=== PATIENT | female | born 1930 | race Caucasian/White ===

== ENCOUNTER 2017-07-01 04:14 | Emergency (ER) | payer OTHER, MEDICAID ==
--- NOTE | 2017-07-01 04:45 | EDPHY ---
H & P Stated Complaint: n/v, abdominal cramping Time Seen by Provider: 07/01/17 04:33 HPI/ROS: Chief Complaint: Coffee-ground vomiting abdominal pain HPI: 87-year-old woman presenting from [facility] with nausea vomiting and 2 episodes of large coffee-ground emesis this morning. She has been complaining of upper abdominal and chest pain for the last 2 weeks. She does have a most form indicating comfort measures only however family wanted her transferred here for evaluation of her pain. Denies any fevers or chills. Denies any dark black stools. No shortness of breath. History is limited because the patient does have some dementia. ROS: 10 point Review of Systems is negative except as noted in the HPI. PMH: CVA, hypertension, valvular heart disease, anemia, dysphagia, GERD, colitis, chronic kidney disease, hyperlipidemia, vascular dementia Social History: No smoking, no alcohol, no recreational drug use, resides in [facility] Family History: non-contributory Physical Exam: Gen: Awake, Alert, No Distress HEENT: Nose: no rhinorrhea Eyes: PERRLA, EOMI Mouth: Moist mucosa Neck: Supple, no JVD Chest: nontender, lungs clear to auscultation Heart: S1, S2 normal, no murmur Abd: Soft, mild epigastric tenderness, no guarding Back: no CVA tenderness, no midline tenderness Ext: no edema, non-tender Skin: no rash Neuro: CN II-XII intact, Sensation grossly intact, Strength 5/5 in bilateral upper and lower extremities - Personal History Current Tetanus/Diphtheria Vaccine: Yes Current Tetanus Diphtheria and Acellular Pertussis (TDAP): Yes - Medical/Surgical History Hx Asthma: No Hx Chronic Respiratory Disease: No Hx Diabetes: No Hx Cardiac Disease: Yes Hx Renal Disease: Yes Hx Cirrhosis: No Hx Alcoholism: No Hx HIV/AIDS: No Hx Splenectomy or Spleen Trauma: No - Social History Smoking Status: Never smoked Constitutional: Initial Vital Signs Temperature (C) 36.6 C 07/01/17 04:23 Heart Rate 97 07/01/17 04:23 Respiratory Rate 19 07/01/17 04:23 Blood Pressure 160/94 H 07/01/17 04:23 O2 Sat (%) 94 07/01/17 04:23 O2 Delivery Mode Room Air Allergies/Adverse Reactions: No Allergies Allergy (Verified 07/01/17 04:28) No Known Drug Allergies Allergy (Verified 07/01/17 04:28) Home Medications: Medication Instructions Recorded Bisacodyl [Dulcolax] 5 mg PO 07/01/17 Cetirizine [ZyrTEC 10 mg (*)] 07/01/17 Cholecalciferol 07/01/17 Ear Drops 07/01/17 Metoclopramide HCl 07/01/17 Milk of Magnesia 07/01/17 Multivitamins [Multivitamin (*)] 1 each PO DAILY 07/01/17 Omeprazole 07/01/17 Polyethylene Glycol 3350 [Miralax 07/01/17 17 gm (*)] Senokot 07/01/17 Medical Decision Making Procedures: Procedure: Ultrasound guidance for IV placement. Indication: The nurse requested that I place an intravenous catheter because of technical difficulties with this procedure on this patient. Procedure in details: Using the linear probe covered in a sterile sheath, a short axis of the right basilic vein was obtained. This vein was completely compressible and was identified as separate from the adjacent noncompressible arterial structure. Under real-time guidance, the intravenous needle was observed to tent the vein and then to puncture it. Insertion of intravenous catheter: I prepped the patient's skin with chlorhexidine. I placed an 18 gauge intravenous catheter in the visualized vein. ED Course/Re-evaluation: 87-year-old woman with a history of dementia in a most form indicating comfort measures only coming in with coffee-ground emesis. EMS reported that the next of kin wanted the patient transferred to the hospital for further evaluation. I have discussed with Dr. Bedolla, gastroenterology. He states that he does not feel that endoscopy would be indicated in a patient who is does egg needed comfort measures only. This would be a invasive procedure that would be an escalation of treatment beyond that scope. I have also discussed with . Luann Salas, the patient's niece and medical power of bankruptcy attorney. She indicates that she has an agreement with Amando Shah that the patient is to be comfort measures only and does not want the patient sent to the hospital. She states that she did not have any conversations with the nursing facility this morning. She agrees with the plan to discharge the patient back to the long-term facility. The patient has gotten IV Zofran here. She is resting comfortably. She will be discharged according to the next of kin's wishes. - Data Points Laboratory Results: Laboratory Results 07/01/17 05:50 07/01/17 05:50 07/01/17 07/01/17 05:50 05:50 WBC TNP RBC TNP Hgb TNP Hct TNP MCV TNP MCH TNP MCHC TNP RDW TNP Plt Count TNP MPV TNP Neut % (Auto) TNP Lymph % (Auto) Not Reported [place] % (Auto) TNP Eos % (Auto) TNP Baso % (Auto) TNP Nucleat RBC Rel Count TNP Absolute Neuts (auto) TNP Absolute Lymphs (auto) TNP Absolute Monos (auto) TNP Absolute Eos (auto) TNP Absolute Basos (auto) TNP Absolute Nucleated RBC TNP Immature Gran % TNP Immature Gran # TNP Sodium 144 mEq/L mEq/L (134-144) Potassium 4.5 mEq/L mEq/L (3.5-5.2) Chloride 105 mEq/L mEq/L (97-110) Carbon Dioxide 24 mEq/l mEq/l (22-31) Anion Gap 15 mEq/L mEq/L (8-16) BUN 11 mg/dL mg/dL (7-23) Creatinine 1.1 mg/dL H mg/dL (0.6-1.0) Estimated GFR 47 Glucose 161 mg/dL H mg/dL (70-100) Calcium 10.7 mg/dL H mg/dL (8.5-10.4) Phosphorus 3.5 mg/dL mg/dL (2.5-4.5) Total Bilirubin 0.5 mg/dL mg/dL (0.1-1.4) AST 32 IU/L IU/L (14-46) ALT 41 IU/L IU/L (9-52) Alkaline Phosphatase 163 IU/L H IU/L (38-126) Total Protein 7.5 g/dL g/dL (6.3-8.2) Albumin 4.3 g/dL g/dL (3.5-5.0) Medications Given: Discontinued Medications Acetaminophen (Tylenol) 1,000 mg PO EDNOW ONE Stop: 07/01/17 06:02 Last Admin: 07/01/17 06:03 Dose: 1,000 mg Pantoprazole Sodium (Protonix) 40 mg IVP EDNOW ONE Stop: 07/01/17 04:47 Last Admin: 07/01/17 05:55 Dose: 40 mg Departure - Departure Disposition: Home, Routine, Self-Care Clinical Impression: Vomiting blood Condition: Fair Instructions: Hematemesis (ED) Additional Instructions: Ms Jacob is comfort measures only per her MOST form. Please do not transfer to the hospital unless you are unable to keep her pain controlled in your facility. Referrals: Gertrudis Morrow MD [Primary Care Provider] - As per Instructions
[2017-07-01] MEDS: PANTOPRAZOLE SODIUM 40 MG VIAL IVP ONE (05:55)
[2017-07-01] MEDS: ACETAMINOPHEN 500 MG TAB PO ONE (06:03)
[2017-07-01 06:15] LABS: ALANINE AMINOTRANSFERASE 41 IU/L (9-52); ALBUMIN 4.3 g/dL (3.5-5.0); ALKALINE PHOSPHATASE 163 IU/L (38-126); ANION GAP 15 mEq/L (8-16); ASPARTATE AMINOTRANSFERASE 32 IU/L (14-46); BILIRUBIN,TOTAL 0.5 mg/dL (0.1-1.4); CALCIUM 10.7 mg/dL (8.5-10.4); CARBON DIOXIDE 24 mEq/l (22-31); CHLORIDE 105 mEq/L (97-110); CREATININE 1.1 mg/dL (0.6-1.0); GLOMERULAR FILTRATION RATE 47; GLUCOSE 161 mg/dL (70-100); POTASSIUM 4.5 mEq/L (3.5-5.2); SODIUM 144 mEq/L (134-144); TOTAL PROTEIN 7.5 g/dL (6.3-8.2)
[2017-07-01] MEDS: ONDANSETRON 4 MG/2 ML VIAL IVP ONE (06:23)
[2017-07-01 08:01] VITALS: BP 140/82; PULSE 85; RESP 18; TEMP 98.4; O2SAT 97
== END 2017-07-01 08:01 | disposition home or self-care (01) ==
LOC: EDUNIT#
DX: K92.0 Hematemesis (principal); I12.9 Hypertensive chronic kidney disease with stage 1 through stage 4 chronic kidney disease, or unspecified chronic kidney disease; N18.9 Chronic kidney disease, unspecified; Z86.73 Personal history of transient ischemic attack (TIA), and cerebral infarction without residual deficits
CPT/HCPCS: 96374; 96375; 99284; J2405; 82947-QW